=== PATIENT | male | born 1980 | race Caucasian/White ===

== ENCOUNTER 2020-04-24 13:05 | Emergency (ER) | payer OTHER ==
[2020-04-24 13:10] VITALS: TEMP 98.4; BMI 25.8
[2020-04-24] MEDS ORDERED: SODIUM CHLORIDE 1,000 ML IV SCH (13:30)
--- NOTE | 2020-04-24 13:34 | PDOC ---
History of Present Illness - General Chief Complaint: Facial Droop Stated Complaint: POSS STROKE Time Seen by Provider: 04/24/20 13:20 - History of Present Illness Initial Comments: 04/24/20 14:07 Ukrainian speaking. 39 y/o M hx of diabetes and psoriasis,(remote hx of HLD, presents to the ED with left sided facial droop since yesterday afternoon. not associated with any trauma or insect bites or new rash. pt has not had any loss of sensation, numbness, tingling, nausea vomiting ,diarrhea. Patient denies PALOMINO, vision change, palpitations, cough, wheezing, orthopena, PND, leg swelling/pain, N/V, F,C, CP, SOB, urinary complaints, hematuria, BPR, abdominal pain, constipation,. PMHx: as noted above ROS: as noted SHx: Denies Etoh, IVDA, tobacco use Allergies: NKDA ROS: GENERAL/CONSTITUTIONAL: No fever or chills. No weakness. HEAD, EYES, EARS, NOSE AND THROAT: No change in vision. No ear pain or discharge. No sore throat. CARDIOVASCULAR: No chest pain or shortness of breath RESPIRATORY: No cough, wheezing, or hemoptysis. GASTROINTESTINAL: No nausea, vomiting, diarrhea or constipation. GENITOURINARY: No dysuria, frequency, or change in urination. MUSCULOSKELETAL: No joint or muscle swelling or pain. No neck or back pain. SKIN: multiple psoriatic plaques on the torso and forearms NEUROLOGIC: No headache, vertigo, loss of consciousness, or change in strength/sensation. ENDOCRINE: No increased thirst. No abnormal weight change HEMATOLOGIC/LYMPHATIC: No anemia, easy bleeding, or history of blood clots. ALLERGIC/IMMUNOLOGIC: No hives or skin allergy. PE: GENERAL: Awake, alert, and fully oriented, in no acute distress HEAD: No signs of trauma, normocephalic, atraumatic EYES: PERRLA, EOMI, sclera anicteric, conjunctiva clear ENT: Auricles normal inspection, hearing grossly normal, nares patent, oropharynx clear without exudates. Moist mucosa NECK: Normal ROM, supple, no lymphadenopathy, JVD, or masses LUNGS: No distress, speaks full sentences, clear to auscultation bilaterally HEART: Regular rate and rhythm, normal S1 and S2, no murmurs, rubs or gallops, peripheral pulses normal and equal bilaterally. ABDOMEN: Soft, nontender, normoactive bowel sounds. No guarding, no rebound. No masses EXTREMITIES : Normal inspection, Normal range of motion, no edema. No clubbing or cyanosis NEUROLOGICAL: Normal speech, normal gait,left sided facial droop (does not spare the forehead). other cranial nerves intact. SKIN: Warm, Dry, normal turgor, multiple psoriatic plaques on the torso and forearms. NIH Stroke Scale - Last Known Well Date/Time & Onset Date Last Known Well: 04/23/20 Time Last Known Well: 14:00 - Initial Evaluation Level of consciousness: Alert Ask patient the month and their age: Answers both correctly Ask patient to open & close eyes; make fist and let go: Obeys both correctly Best gaze (horizontal eye movement): Normal Visual field testing: No visual field loss Facial paresis (Show teeth/raise eyebrows/close eyes tight): Partial paralysis (total or near paralysis of lower face) Motor Function: Left Arm: Normal Motor Function: Right Arm: Normal (extends arm 90 (or 45) degrees for 10 seconds without drift Motor Function: Left Leg: Normal (extends leg 30 degrees for 5 seconds without drift) Motor Function: Right Leg: Normal (extends leg 30 degrees for 5 seconds without drift) Limb Ataxia: No ataxia Sensory(Use pinprick test arms,legs,trunk,face/side to side): Normal Best language (Describe picture, name items, read sentences): No Aphasia Dysarthria (read several words): Normal articulation Extinction and Inattention: No abnormality - Total Score NIH Stroke Scale Score: 2 Past History - Medical History Allergies/Adverse Reactions: Allergies Allergy/AdvReac Type Severity Reaction Status Date / Time No Known Allergies Allergy Verified 04/24/20 13:07 Home Medications: Ambulatory Orders Dextran 70/Hypromellose [Artificial Tears] 1 each OS PRN PRN 14 Days #1 bottle 04/24/20 predniSONE [Deltasone -] 60 mg PO DAILY 6 Days #18 tablet 04/24/20 COPD: No Diabetes: Yes (on insulin) - Psycho-Social/Smoking History Smoking History: Never smoked Have you smoked in the past 12 months: No - Substance Abuse Hx (Audit-C & DAST Scrn) How often the patient has a drink containing alcohol: 4 0r more times/wk Number of drinks the patient has on a typical day: 1 or 2 Score: In Men: 4 or > Positive; In Women: 3 or > Positive: 4 Screen Result (Pos requires Nsg. Audit-10AR): Positive In the last yr the pt used illegal drug/Rx for NonMed reason: No Score: Yes response is considered Positive: 0 Screen Result (Positive result requires Nsg. DAST-10): Negative *Physical Exam - Vital Signs Last Vital Signs Temp Pulse Resp BP Pulse Ox 98.4 F 85 18 156/92 99 04/24/20 13:07 04/24/20 13:07 04/24/20 13:07 04/24/20 13:07 04/24/20 13:07 ED Treatment Course - LABORATORY CBC & Chemistry Diagram: 04/24/20 13:45 04/24/20 13:22 - RADIOLOGY Radiology Studies Ordered: Category Date Time Status HEAD CT (STROKE) [CT] Stat CT Scan 04/24/20 13:19 Ordered CHEST X-RAY PORTABLE* [RAD] Stat Radiology 04/24/20 13:19 Ordered Medical Decision Making - Medical Decision Making 04/24/20 14:33 39 y/o M hx of diabetes and psoriasis,(remote hx of HLD, presents to the ED with left sided facial droop since yesterday afternoon. not associated with any trauma or insect bites or new rash ddx: bells palsy, stroke , Lyme disease, GBS HeadCT There is no evidence of acute intracranial hemorrhage, mass lesions or infarctions. There is mild mucosal thickening within the left maxillary sinus consistent with chronic sinusitis. The remainder of the visualized paranasal sinuses and mastoid air cells are clear. The calvarium is intact. IMPRESSION: No evidence of acute intracranial pathology. 04/24/20 15:04 pt sent home with steroid prescription and artificial tears counselled about high tryglyceride levels and the importance of following up with cardiology(due to ekg findings) and hx of HTN and neurology. Pt confirmed understanding of these findings and agreed to follow instructions set up with primary care through our [facility] system as well. 04/24/20 16:03 04/24/20 16:04 05/10/20 08:50 Discharge - Discharge Information Problems reviewed: Yes Clinical Impression/Diagnosis: Barba's palsy, Abnormal Q waves on electrocardiogram, Hypertriglyceridemia, Hyperglycemia Condition: Stable Disposition: HOME - Admission No - Additional Discharge Information Prescriptions: Dextran 70/Hypromellose [Artificial Tears] 1 each OS PRN PRN 14 Days #1 bottle PRN Reason: Dry Eyes predniSONE [Deltasone -] 60 mg PO DAILY 6 Days #18 tablet - Follow up/Referral Referrals: Abiodun Mack MD [Staff Physician] - Esteban Golden MD [Staff Physician] - - Patient Discharge Instructions Patient Printed Discharge Instructions: DI for Barba's Palsy, High Triglycerides Print Language: FAROESE - Post Discharge Activity
[2020-04-24 14:14] LABS: BASO % 1.1 % (0-2.0); EOS % 2.7 % (0-4.5); HEMATOCRIT 45.4 % (35.4-49); HEMOGLOBIN 15.3 GM/dL (11.7-16.9); LYMPH % 34.5 % (8-40); MCHC 33.7 g/dl (32.0-35.9); MEAN CELL VOLUME 91.9 fl (80-96); MEAN PLT VOLUME 10.8 fl (7.5-11.1); MONO % 9.2 % (3.8-10.2); NEUT % 52.5 % (42.8-82.8); PLATELET COUNT 191 K/MM3 (134-434); RBC 4.94 M/mm3 (4.00-5.60); RDW 13.2 % (11.9-15.9); WHITE BLOOD COUNT 6.2 K/mm3 (4.0-10.0)
[2020-04-24 14:22] LABS: INR 1.01 (0.83-1.09); PROTHROMBIN TIME (PATIENT) 11.9 SEC (9.7-13.0)
[2020-04-24 14:24] LABS: ACTIVATED PTT 32.5 SECONDS (25.2-36.5)
[2020-04-24 14:40] LABS: ALK PHOS 94 U/L (45-117); ANION GAP 6 MMOL/L (8-16); BILIRUBIN,TOTAL 0.4 mg/dL (0.2-1); BLOOD UREA NITROGEN 18.4 mg/dL (7-18); CALCIUM 8.7 mg/dL (8.5-10.1); CHLORIDE 106 mmol/L (98-107); CHOLESTEROL 169 mg/dL (50-200); CO2 28 mmol/L (21-32); CREATININE 0.8 mg/dL (0.55-1.3); GLUCOSE,RANDOM 253 mg/dL (74-106); HDL CHOLESTEROL 44 mg/dL (40-60); LDL CHOLESTEROL (ONLY SJRH) 98 mg/dL (5-100); POTASSIUM 4.2 mmol/L (3.5-5.1); SGOT/AST 39 U/L (15-37); SGPT/ALT 56 U/L (13-61); SODIUM 139 mmol/L (136-145); TOT PROT 7.2 g/dl (6.4-8.2); TRIGLYCERIDES 338 mg/dL (0-150)
[2020-04-24] MEDS ORDERED: predniSONE 20 MG TABLET (UD) PO ONE (14:44)
[2020-04-24] MEDS ORDERED: predniSONE 20 MG TABLET (UD) ONE ×2 (15:29→15:31)
--- NOTE | 2020-04-24 15:41 | PDOC ---
Documentation entered by Shemar Morfin SCRIBE, acting as scribe for Ledy Brunson MD. Ledy Brunson MD: This documentation has been prepared by the Shelbie kerns Aaron, SCRIBE, under my direction and personally reviewed by me in its entirety. I confirm that the documentation accurately reflects all work, treatment, procedures, and medical decision making performed by me. Attending Attestation - Resident Resident Name: Valeri Guillory - ED Attending Attestation I have performed the following: I have examined & evaluated the patient, The case was reviewed & discussed with the resident, I agree w/resident's findings & plan, Exceptions are as noted - HPI HPI: 04/24/20 14:27 The patient is a 39 year old male with a significant PMH of IDDM and psoriasis, and a remote PMH of HTN and HDL (no longer on medication, states his provider told him to stop taking them), who presents to the emergency department for full-facial droop, last known well yesterday 14:00. Patient has upper and lower left sided facial droop, as well as minimal left-sided facial numbness. Patient is talking normally. Patient denies any recent tick bites. Patient denies dizziness, lightheadedness, difficulty walking or balancing, fever, chills, nausea, vomiting, loss of sensation, tingling, ear pain, new skin lesions (aside from chronic unchanged psoriasis), chest pain, PALOMINO, SOB, palpitations, new rashes, or any other symptoms. Allergies: NKDA Past surgical history: Social Hx: 1-2 drinks per day PCP: unknown - Physicial Exam PE: 04/24/20 15:16 GENERAL: well-appearing, A/Ox4, no distress, answers questions appropriately, pleasant, wearing a face mask, Swedish-speaking HEENT: PERRLA, EOMI, moist mucous membranes NECK/BACK: no midline ttp, no spinal step-off or deformity, no hematoma, full ROM, neck supple CARDIOVASCULAR: regular rate/rhythm, no MGR, strong peripheral pulses, capillary refill <2 seconds, extremities wwp, no edema LUNGS/RESPIRATORY: no respiratory distress, CTAB GI/ABDOMEN: symmetric [id number], normoactive BS, soft, no ttp, no midline pulsatile masses : no CVA tenderness MSK/EXTREMITIES: no muscle atrophy, no acute deformity SKIN: warm and dry, no pallor, no jaundice, no rash, no pathologic-appearing bruising, no skin breakdown, no cuts, no lesions NEUROLOGICAL: GCS 15, CN II-XII grossly intact, 5/5 strength proximally and distally, no facial droop, left-sided mild facial droop which involves the frontalis, subjective minimal numbness to the entire left face, normal parking meter collector strength, normal sensation remainder of the entire body, vision 20/20 vicky aterally, no truncal ataxia, negative Romberg, normal gait - Medical Decision Making 04/24/20 13:00 39YOM with h/o EtOH use, HTN, HLD, IDDM, who p/w new left-sided complete facial droop and minimal numbness to same distribution. There are no additional neurologic symptoms, no dizziness, gait disturbance, difficulty talking/swallowing, or additional n/t/w focally. 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 He has no e/o HSV, no known h/o tick bites or other risk factors, has not gone hiking in [place] lately. He has no red flags for [employer] cause for facial droop (and the droop involves the frontalis which is reassuring for Barba's Palsy). However given his risk factors (HTN, HLD, IDDM) will get thorough workup, including HCT and EKG. Provider Orders Category Date Time Status HEAD CT (STROKE) [CT] Stat CT Scan 04/24/20 13:19 Completed ELECTROCARDIOGRAM [CARD] Stat Cardiology 04/24/20 13:19 Ordered Cardiac Monitoring Continuous Care 04/24/20 13:19 Active EKG needed NOW Care 04/24/20 13:20 Completed Finger Stick [BGM (Blood Glucose Monitoring)] NOW Care 04/24/20 13:20 Active HOB Elevated 30-45 Degrees NOW Care 04/24/20 13:19 Active IV - Insert 2 lines NOW Care 04/24/20 13:19 Completed Insert Saline Lock NOW Care 04/24/20 13:19 Active Isolation Precautions As directed Care 04/24/20 14:18 Active Vital Signs Q30M Care 04/24/20 13:19 Active Weight NOW Care 04/24/20 13:19 Active CARDIAC PROFILE ([facility]) Stat Lab 04/24/20 13:22 Completed CBC WITH DIFFERENTIAL Stat Lab 04/24/20 13:45 Completed CK INDEX Stat Lab 04/24/20 13:22 Completed CK MB Stat Lab 04/24/20 13:22 Completed COMP METABOLIC PANEL Stat Lab 04/24/20 13:22 Completed COVID-19 Stat Lab 04/24/20 14:15 Received LIPID PROFILE ([facility] ONLY) Stat Lab 04/24/20 13:22 Completed POC GLUCOSE TESTING Routine Lab 04/24/20 13:36 Completed PT & APTT Stat Lab 04/24/20 13:45 Completed UA ([facility]) ONLY Stat Lab 04/24/20 13:22 Ordered Sodium Chloride [Normal Saline -] 1,000 ml Medication 04/24/20 13:30 Active IV ASDIR predniSONE [Deltasone -] Medication 04/24/20 15:31 Discontinued 20 mg .ROUTE .STK-MED ONE predniSONE [Deltasone -] Medication 04/24/20 15:29 Discontinued 60 mg .ROUTE .STK-MED ONE predniSONE [Deltasone -] Medication 04/24/20 14:44 Discontinued 60 mg PO ONCE ONE Continuous Pulse Oximetry NOW Phy Order 04/24/20 13:19 Completed CHEST X-RAY PORTABLE* [RAD] Stat Radiology 04/24/20 13:19 Taken Medications Generic Name Dose Route Start Last Admin Trade Name Freq PRN Reason Stop Dose Admin Sodium Chloride 1,000 mls @ 42 mls/hr 04/24/20 13:30 04/24/20 14:04 Normal Saline - IV 42 mls/hr ASDIR JEANNE Administration Discontinued Medications Generic Name Dose Route Start Last Admin Trade Name Freq PRN Reason Stop Dose Admin Prednisone 60 mg 04/24/20 14:44 Deltasone - PO 04/24/20 14:45 ONCE ONE Prednisone Confirm 04/24/20 15:29 Deltasone - Administered 04/24/20 15:30 Dose 60 mg .ROUTE .STK-MED ONE Prednisone Confirm 04/24/20 15:31 Deltasone - Administered 04/24/20 15:32 Dose 20 mg .ROUTE .STK-MED ONE Lab Results WBC 6.2 K/mm3 (4.0-10.0) 04/24/20 13:45 RBC 4.94 M/mm3 (4.00-5.60) 04/24/20 13:45 Hgb 15.3 GM/dL (11.7-16.9) 04/24/20 13:45 Hct 45.4 % (35.4-49) 04/24/20 13:45 MCV 91.9 fl (80-96) 04/24/20 13:45 MCH 31.0 pg (25.7-33.7) 04/24/20 13:45 MCHC 33.7 g/dl (32.0-35.9) 04/24/20 13:45 RDW 13.2 % (11.9-15.9) 04/24/20 13:45 Plt Count 191 K/MM3 (134-434) 04/24/20 13:45 MPV 10.8 fl (7.5-11.1) 04/24/20 13:45 Absolute Neuts (auto) 3.3 K/mm3 (1.5-8.0) 04/24/20 13:45 Neutrophils % 52.5 % (42.8-82.8) 04/24/20 13:45 Lymphocytes % 34.5 % (8-40) 04/24/20 13:45 Monocytes % 9.2 % (3.8-10.2) 04/24/20 13:45 Eosinophils % 2.7 % (0-4.5) 04/24/20 13:45 Basophils % 1.1 % (0-2.0) 04/24/20 13:45 Nucleated RBC % 0 % (0-0) 04/24/20 13:45 PT with INR 11.90 SEC (9.7-13.0) 04/24/20 13:45 INR 1.01 (0.83-1.09) 04/24/20 13:45 PTT (Actin FS) 32.5 SECONDS (25.2-36.5) 04/24/20 13:45 Sodium 139 mmol/L (136-145) 04/24/20 13:22 Potassium 4.2 mmol/L (3.5-5.1) 04/24/20 13:22 Chloride 106 mmol/L (98-107) 04/24/20 13:22 Carbon Dioxide 28 mmol/L (21-32) 04/24/20 13:22 Anion Gap 6 MMOL/L (8-16) L 04/24/20 13:22 BUN 18.4 mg/dL (7-18) H 04/24/20 13:22 Creatinine 0.8 mg/dL (0.55-1.3) 04/24/20 13:22 Est GFR (CKD-EPI)AfAm 130.42 04/24/20 13:22 Est GFR (CKD-EPI)NonAf 112.53 04/24/20 13:22 POC Glucometer 288 UNITS (80-120) 04/24/20 13:36 Random Glucose 253 mg/dL (74-106) H 04/24/20 13:22 Calcium 8.7 mg/dL (8.5-10.1) 04/24/20 13:22 Total Bilirubin 0.4 mg/dL (0.2-1) 04/24/20 13:22 AST 39 U/L (15-37) H 04/24/20 13:22 ALT 56 U/L (13-61) 04/24/20 13:22 Alkaline Phosphatase 94 U/L (45-117) 04/24/20 13:22 Creatine Kinase 436 U/L (26-308) H 04/24/20 13:22 Creatine Kinase Index 1.1 % (0.0-5.0) 04/24/20 13:22 CK-MB (CK-2) 4.8 ng/mL (0.5-3.6) H 04/24/20 13:22 Troponin I < 0.02 ng/ml (0.00-0.05) 04/24/20 13:22 Total Protein 7.2 g/dl (6.4-8.2) 04/24/20 13:22 Albumin 4.0 g/dl (3.4-5.0) 04/24/20 13:22 Triglycerides 338 mg/dL (0-150) H 04/24/20 13:22 Cholesterol 169 mg/dL (50-200) 04/24/20 13:22 Total LDL Cholesterol 98 mg/dL (5-100) 04/24/20 13:22 HDL Cholesterol 44 mg/dL (40-60) 04/24/20 13:22 Blood Type Cancelled 04/24/20 13:45 Antibody Screen Cancelled 04/24/20 13:45 The patient's EKG shows pathologic Q waves in one lead (III), but troponin negative, CK index <4, likely old changes. No prior EKG available for comparison. Patient is counseled at length about his risk factors for vascular events including VT and CVA, and instructed to f/u with PCP on Sunday, and also to call both cardiology and neurology on Sunday for follow-up appointments. We do have a lengthy discussion in his ekwok language about his high risk factors for vascular emergencies, even though there is no clinical or HCT indication that this is what has brought him to the ED today. Exam remains consistent with Barba's palsy. He understands that he will need to get/keep his HTN/HLD under control and needs to f/u with cardiology. Referral information is given. As for care for his Barba's palsy, he is given glucocorticoid dose here and E-Rx sent, he will waste picker eye patch and drops for protection and lubrication, as I discuss with him. He will come back for any new concerns or symptoms including new or worsening n/t/w focally, rash, skin lesions, vertigo, difficulty speaking/swallowing/walking, balance problems, chest pain, SOB, neck pain, PALOMINO, or other issues. Heart Score/ECG Review #1 04/24/20 15:06 Sinus rhythm, rate 81, normal axis and intervals, Q wave in III without prior EKG for comparison, no ischemic ST-T changes NIH Stroke Scale - Last Known Well Date/Time & Onset Date Last Known Well: 04/23/20 Time Last Known Well: 14:00 - Initial Evaluation Level of consciousness: Alert Ask patient the month and their age: Answers both correctly Ask patient to open & close eyes; make fist and let go: Obeys both correctly Best gaze (horizontal eye movement): Normal Visual field testing: No visual field loss Facial paresis (Show teeth/raise eyebrows/close eyes tight): Minor paralysis (flattened nasolabial fold, asymmetry on smiling) Motor Function: Left Arm: Normal Motor Function: Right Arm: Normal (extends arm 90 (or 45) degrees for 10 seconds without drift Motor Function: Left Leg: Normal (extends leg 30 degrees for 5 seconds without drift) Motor Function: Right Leg: Normal (extends leg 30 degrees for 5 seconds without drift) Limb Ataxia: No ataxia Sensory(Use pinprick test arms,legs,trunk,face/side to side): Mild to moderate decrease in sensation Best language (Describe picture, name items, read sentences): No Aphasia Dysarthria (read several words): Normal articulation Extinction and Inattention: No abnormality - Total Score NIH Stroke Scale Score: 2 Discharge - Discharge Information Problems reviewed: Yes Clinical Impression/Diagnosis: Abnormal Q waves on electrocardiogram, Barba's palsy, Hypertriglyceridemia, Hyperglycemia Condition: Stable Disposition: HOME - Admission No - Additional Discharge Information Prescriptions: Dextran 70/Hypromellose [Artificial Tears] 1 each OS PRN PRN 14 Days #1 bottle PRN Reason: Dry Eyes predniSONE [Deltasone -] 60 mg PO DAILY 6 Days #18 tablet - Follow up/Referral Referrals: Esteban Golden MD [Staff Physician] - Abiodun Mack MD [Staff Physician] - - Patient Discharge Instructions Patient Printed Discharge Instructions: DI for Barba's Palsy, High Triglycerides Print Language: DIVEHI - Post Discharge Activity
[2020-04-24 16:14] VITALS: BP 157/93; PULSE 84
--- NOTE | 2020-04-25 08:59 | EKG ---
Test Reason : Blood Pressure : / mmHG Vent. Rate : 081 BPM Atrial Rate : 081 BPM P-R Int : 140 ms QRS Dur : 076 ms QT Int : 346 ms P-R-T Axes : 001 039 017 degrees QTc Int : 401 ms NORMAL SINUS RHYTHM NORMAL ECG NO PREVIOUS ECGS AVAILABLE Confirmed by Makeda Araiza ([id number]) on 04/25/2020 8:59:36 AM Referred By: Confirmed By:Makeda Araiza
== END 2020-04-24 16:13 | disposition home or self-care (01) ==
LOC: JER 13:05
DX: G51.0 Bell's palsy (principal); E78.1 Pure hyperglyceridemia; E11.65 Type 2 diabetes mellitus with hyperglycemia; R94.31 Abnormal electrocardiogram [ECG] [EKG]
CPT/HCPCS: 36415; 70450-TC; 71045-TC-FY; 80053; 80061; 82550; 82553; 82962; 83721; 84484; 85025; 85610; 85730; 93005; 93010; 99285-25; U0003